=== PATIENT | female | born 1960 | race Caucasian/White ===

== ENCOUNTER → 2016-12-29 | Outpatient (CLI) | payer BC | END | disposition home or self-care (01) | LOC: LAB.O 08:32 | PROVIDERS: ATTEND Psychiatry & Neurology Psychiatry | DX: Z79.899 Other long term (current) drug therapy (principal) ==

== ENCOUNTER → 2017-08-29 | Outpatient (CLI) | payer BC | LOC: GMAM 10:51 | PROVIDERS: ATTEND Family Medicine | DX: Z00.00 Encounter for general adult medical examination without abnormal findings (principal) ==

== ENCOUNTER → 2019-01-29 | Outpatient (CLI) | payer BC | LOC: GMAM 10:38 | PROVIDERS: ATTEND Family Medicine | DX: Z00.00 Encounter for general adult medical examination without abnormal findings (principal) ==

== ENCOUNTER → 2019-01-31 | Outpatient (CLI) | payer BC ==
--- NOTE | 2019-02-06 12:25 | MAM ---
EXAM DESCRIPTION: 3D Screening BILATERAL : Digital Mammography. CLINICAL HISTORY: 58 years Female SCREENING . No complaints. No personal history of breast cancer. Sister with breast cancer at age 55. Menarche age 13. Childbirth. Postmenopausal 10+ years. No HRT. Lifetime risk of developing breast cancer (Tyrer-Cuzick model)(%): 14.5. COMPARISON: Baseline study at this facility. No prior reports available. TECHNIQUE: Bilateral CC and MLO projection full-field images, digital tomosynthesis mammographic technique. Bilateral digital 2-D full-field MLO images. CAD not available for tomosynthesis or 2-D images. FINDINGS: The breast parenchymal density pattern is: Heterogeneously dense breast tissue, which may obscure small masses. No skin thickening or nipple retraction. Bilateral coarse microcalcifications. Intramammary lymph node right axillary tail. Bilateral vascular calcifications. No focal, stellate mass or density, focal asymmetry , and no suspicious microcalcifications. IMPRESSION: Benign exam. BIRAD CATEGORY: 2 BENIGN FINDINGS. RECOMMENDATIONS: FOLLOW UP: Routine digital bilateral mammographic screening, one year interval from January 2019. Written communication explaining the IMPRESSION and follow-up, will be mailed to the patient and referring health care provider. According to the [employer], yearly mammograms are recommended starting at age 40 and continuing as long as a woman is in good health. Any breast change noted on a breast self-exam should be reported promptly to the patient's healthcare provider. Breast MRI is recommended for women with an approximately 20-25% or greater lifetime risk of breast cancer, including women with a strong family history of breast or ovarian cancer and women who have been treated for Hodgkin's disease. A negative mammographic report should not delay tissue diagnosis in patients with significant clinical history or physical findings. Extremely dense breast tissue limits the sensitivity of digital mammography. Electronically signed by: Carl Lombardi MD 02/06/2019 12:24 PM CDT
== END ==
LOC: MAMMO 15:30
PROVIDERS: ATTEND Family Medicine
DX: Z12.31 Encounter for screening mammogram for malignant neoplasm of breast (principal)

== ENCOUNTER → 2019-06-20 | Outpatient (CLI) | payer BC ==
--- NOTE | 2019-06-21 09:39 | US ---
EXAM DESCRIPTION: Soft Tissue,Head/Neck: ULTRASOUND. CLINICAL HISTORY: 59 years Female LOCALIZED SWELLING, MASS AND LUMP, NECK COMPARISON: None Available. TECHNIQUE: Transcutaneous scanning: Waggoner-scale and Doppler modes. FINDINGS: Again posterior right neck. Palpable mass. 6.1 x 5.0 x 7.7 mm hypoechoic mass with eccentric echogenic region but not vascular. Smaller similar-appearing mass nearby soft tissues with central vascularity measuring 3.9 x 2.7 mm. No simple cyst. No large calcifications. No overlying skin changes. IMPRESSION: Probable lymph nodes posterior right neck subcutaneous soft tissues. The larger node measuring 7.7 mm is palpable. Electronically signed by: Carl Lombardi MD 06/21/2019 9:37 AM BUSINESS ACCOUNT LEADER
== END ==
LOC: US 09:52
PROVIDERS: ATTEND Family Medicine
DX: R22.1 Localized swelling, mass and lump, neck (principal)

== ENCOUNTER → 2020-03-14 | Outpatient (CLI) | payer SELFPAY ==
--- NOTE | 2020-03-17 16:48 | MAM ---
EXAM DESCRIPTION: 3D Screening BILATERAL : Digital Mammography. CLINICAL HISTORY: 59 years Female SCREEN . No complaints. Sister with breast cancer age 55. Menarche age 12. Childbirth age 25. Menopause age 47. No HRT. Lifetime risk of developing breast cancer (Tyrer-Cuzick model)(%): 14.5. COMPARISON: Bilateral screening digital breast tomosynthesis January 2019. TECHNIQUE: Bilateral CC and MLO projection full-field images, digital tomosynthesis mammographic technique. Bilateral digital 2-D full-field MLO images. CAD available for 2-D images. FINDINGS: The breast parenchymal density pattern is: Heterogeneously dense breast tissue, which may obscure small masses. No skin thickening or nipple retraction. Intramammary lymph nodes. Coarse calcifications.. No new focal, stellate mass or density, focal asymmetry , and no suspicious microcalcifications bilaterally. Stable mammograms compared to prior study. IMPRESSION: Benign exam. BIRAD CATEGORY: 2 BENIGN FINDINGS. RECOMMENDATIONS: FOLLOW UP: Routine digital bilateral mammographic screening, one year interval from March 2020. Written communication explaining the IMPRESSION and follow-up, will be mailed to the patient and referring health care provider. According to the [employer], yearly mammograms are recommended starting at age 40 and continuing as long as a woman is in good health. Any breast change noted on a breast self-exam should be reported promptly to the patient's healthcare provider. Breast MRI is recommended for women with an approximately 20-25% or greater lifetime risk of breast cancer, including women with a strong family history of breast or ovarian cancer and women who have been treated for Hodgkin's disease. A negative mammographic report should not delay tissue diagnosis in patients with significant clinical history or physical findings. Extremely dense breast tissue limits the sensitivity of digital mammography. Electronically signed by: Carl Lombardi MD 03/17/2020 4:47 PM PARACHUTE OFFICER
== END ==
LOC: MAMMO 11:26
PROVIDERS: ATTEND Family Medicine
DX: Z12.31 Encounter for screening mammogram for malignant neoplasm of breast (principal)